=== PATIENT | male | born 1975 | race African-American/Black ===

== ENCOUNTER → 2017-04-03 | Day surgery (SDC) | payer OTHER ==
[~2017-04-03] MED LIST: TRIAMCINOLONE ACETONIDE 40 MG/ML SUS ONE
[2017-04-03 15:48] VITALS: BP 115/68; PULSE 61; RESP 14; TEMP 96.8; O2SAT 100
== END | disposition home or self-care (01) ==
LOC: SURG 11:49
PROVIDERS: ATTEND Nurse Anesthetist, Certified Registered
DX: M54.5 Low back pain (principal); M54.16 Radiculopathy, lumbar region
CPT/HCPCS: 62323; 77003; J3300

== ENCOUNTER 2017-04-16 14:36 | Observation (INO) | payer OTHER ==
[2017-04-16 15:04] LABS: BASOPHILS % (AUTO) 0 % (0-3); EOSINOPHILS % (AUTO) 0 % (0-9); HEMATOCRIT 40 % (39-53); MEAN CORPUSCULAR HGB CONC 33.6 gm/dl (32.0-36.0); MEAN CORPUSCULAR VOLUME 91 fL (80-100); MONOCYTES % (AUTO) 6.9 % (0-12); NEUTROPHILS % (AUTO) 71.5 % (37-80)
[2017-04-16] MEDS ORDERED: LORAZEPAM 2 MG/ML SOL IV ONE (15:07)
[2017-04-16] MEDS ORDERED: LORAZEPAM 2 MG/ML SOL ONE (15:08)
[2017-04-16] MEDS: SODIUM CHLORIDE 0.9% 500 ML 1,000 ML IV SCH ×3 (15:15→23:44)
[2017-04-16 15:26] LABS: CALCIUM 9.1 mg/dl (8.5-10.1); GLOM FILT RATE 104 mL/min (>60); MAGNESIUM 2.2 mg/dl (1.8-2.4); POTASSIUM 3.7 mMol/L (3.5-5.1); SODIUM 142 mMol/L (136-145)
[2017-04-16 16:44] LABS: APPEARANCE,URINE CLEAR; BILIRUBIN,URINE NEGATIVE (NEGATIVE); COLOR,URINE YELLOW; GLUCOSE, URINE (UA) NEGATIVE (NEGATIVE); KETONES,URINE NEGATIVE (NEGATIVE); NITRATE,URINE NEGATIVE (NEGATIVE); OCCULT BLOOD,URINE NEGATIVE (NEG-TRACE)
[2017-04-16 16:45] LABS: AMPHETAMINES NEGATIVE (NEGATIVE); LEUKOCYTE ESTERASE ,URINE NEGATIVE (NEGATIVE); METHADONE NEGATIVE (NEGATIVE); OPIATES(OP13) NEGATIVE (NEGATIVE); OXYCODONE(OXY) NEGATIVE (NEGATIVE); PROPOXYPHENE(PPX) NEGATIVE (NEGATIVE); RBC,URINE NEG (0-3AV/HPF); TRICYCLIC ANTIDEPRESSANTS NEGATIVE (NEGATIVE); UROBILINOGEN,URINE 0.2 (0.2-1.0 EU); WBC,URINE NEG (0-5AV/HPF)
[2017-04-16] MEDS ORDERED: Non-Formulary Medication MISC (Albuterol Sulfate [Albuterol *(Proair)(Ventolin)(Proventi IH PRN (21:43)
[2017-04-16] MEDS ORDERED: ONDANSETRON HCL 4 MG TAB PO PRN (21:43)
[2017-04-16] MEDS ORDERED: TRAMADOL HYDROCHLORIDE 50 MG TAB PO PRN (21:43)
[2017-04-16] MEDS: CARBAMAZEPINE 100 MG CTB PO SCH (22:30)
[2017-04-16] MEDS: RISPERIDONE 1 MG TAB PO SCH (22:56)
[2017-04-17] MEDS ORDERED: OMEPRAZOLE 20 MG CAPSULE PO SCH (07:00)
[2017-04-17 07:59] VITALS: BP 132/71; PULSE 57; RESP 16; TEMP 98.4; O2SAT 96
[2017-04-17] MEDS ORDERED: ESCITALOPRAM PO SCH (09:00)
[2017-04-17] MEDS ORDERED: DIVALPROEX 250 MG TCP PO SCH (09:00)
[2017-04-17] MEDS ORDERED: PREDNISOLONE ACETATE 1% LEFTEYE SCH (09:00)
[2017-04-17] MEDS ORDERED: Non-Formulary Medication MISC (Cetirizine 10 Mg 10 MG) PO SCH (09:00)
[2017-04-17] MEDS ORDERED: CETIRIZINE HYDROCHLORIDE 10 MG TAB PO SCH (09:00)
[2017-04-17] MEDS ORDERED: ESCITALOPRAM 10 MG TAB PO SCH (09:00)
[2017-04-17] MEDS ORDERED: CARBAMAZEPINE 300 MG PO SCH (09:00)
[2017-04-17] MEDS ORDERED: BECLOMETHASONE DIP IH SCH (09:00)
[2017-04-17] MEDS ORDERED: Non-Formulary Medication MISC (Fluticasone Propionate 2 SPR) NAS SCH (09:00)
[2017-04-17] MEDS ORDERED: Non-Formulary Medication MISC (Budesonide/Formoterol 160/4.5 2 PUFF) IH SCH (09:00)
[2017-04-17] MEDS ORDERED: DIVALPROEX SODIUM 1500 MG PO SCH (09:00)
[2017-04-17] MEDS ORDERED: ALBUTEROL HFA 60 PUFF/INHALER INH PRN (09:03)
[2017-04-17] MEDS ORDERED: OFLOXACIN 0.3% OPHTHAL 1 DROP SOL LEFTEYE PRN (09:09)
[2017-04-17] MEDS ORDERED: FLUTICASONE PROPIONATE SPR NAS SCH (09:30)
[2017-04-17] MEDS ORDERED: BUDESONIDE/FORMOTEROL 160/4.5 AER INH SCH (09:30)
[2017-04-17] MEDS ORDERED: PNEUMOCOCCAL VACCINE 0.5 ML SOL IM ONE (09:43)
[2017-04-17] MEDS: RISPERIDONE 1 MG TAB PO SCH (09:46)
[2017-04-17] MEDS: CARBAMAZEPINE 100 MG CTB PO SCH (09:48)
[2017-04-17] MEDS ORDERED: PREDNISOLONE ACETATE 1% OPHTH 1 DROP SUS LEFTEYE SCH (13:00)
[2017-04-18] MEDS ORDERED: PANTOPRAZOLE SODIUM 40 MG ECT PO SCH (07:00)
== END 2017-04-17 10:35 | disposition home or self-care (01) ==
LOC: ED 14:36 → ACUTE CARE 19:15
PROVIDERS: ADMIT Family Medicine; ATTEND Family Medicine
DX: R56.9 Unspecified convulsions (principal); R45.851 Suicidal ideations; F41.9 Anxiety disorder, unspecified; Z63.0 Problems in relationship with spouse or partner
CPT/HCPCS: 99285 ×3; 71010; 80048; 80156; 80164; 80305; 81001; 83735; 84100; 84443; 84484; 85025; 87040 ×2; 90732; 93005; J2060; 36415; 96365; 96374; 99291

== ENCOUNTER 2017-04-24 10:33 | Day surgery (SDC) | payer OTHER ==
[2017-04-24] MEDS ORDERED: BUPIVACAINE HCL 0.5% MPF 10 ML SOL ONE (10:41)
[2017-04-24] MEDS ORDERED: LIDOCAINE HCL 2% MPF SOL ONE (10:41)
[2017-04-24 10:46] VITALS: TEMP 97.8; O2SAT 100
[2017-04-24 11:18] VITALS: BP 115/74; PULSE 61; RESP 12
== END 2017-04-24 11:20 | disposition home or self-care (01) ==
LOC: SURG 10:33
PROVIDERS: ATTEND Nurse Anesthetist, Certified Registered
DX: M79.1 Myalgia (principal)

== ENCOUNTER 2017-06-13 03:57 | Emergency (ER) | payer OTHER ==
[2017-06-13 04:03] VITALS: BP 120/70; PULSE 89; RESP 16; TEMP 98; O2SAT 97
[2017-06-13] MEDS ORDERED: BACITRACIN 500 U/GM OIN TOP ONE ×2 (04:09→04:10)
== END 2017-06-13 04:25 | disposition home or self-care (01) ==
LOC: ED 03:57
DX: S50.811A Abrasion of right forearm, initial encounter (principal); S60.511A Abrasion of right hand, initial encounter; W55.03XA Scratched by cat, initial encounter
CPT/HCPCS: 99282; 99283

== ENCOUNTER 2017-06-24 11:24 | Emergency (ER) | payer OTHER ==
[2017-06-24 11:38] VITALS: BP 101/66; PULSE 61; RESP 20; TEMP 96.9; O2SAT 99
== END 2017-06-24 12:25 | disposition home or self-care (01) ==
LOC: ED 11:24
DX: G89.29 Other chronic pain (principal); M54.6 Pain in thoracic spine
CPT/HCPCS: 99282

== ENCOUNTER 2017-07-24 12:23 | Day surgery (SDC) | payer OTHER ==
[2017-07-24 12:45] VITALS: O2SAT 100
[2017-07-24] MEDS ORDERED: TRIAMCINOLONE ACETONIDE 40 MG/ML SUS ONE (13:18)
[2017-07-24 13:44] VITALS: BP 123/54; PULSE 52; RESP 20; TEMP 98.4
== END 2017-07-24 14:00 | disposition home or self-care (01) ==
LOC: SURG 12:23
PROVIDERS: ATTEND Nurse Anesthetist, Certified Registered
DX: M54.5 Low back pain (principal); M54.16 Radiculopathy, lumbar region
CPT/HCPCS: 62323; 77003; J3300

== ENCOUNTER 2017-07-29 12:26 | Emergency (ER) | payer OTHER ==
[2017-07-29] MEDS ORDERED: ALBUTEROL/IPRATROPIUM 1 VIAL SOL ONE (12:40)
[2017-07-29] MEDS ORDERED: ALBUTEROL/IPRATROPIUM 1 VIAL SOL INH ONE (12:45)
[2017-07-29 12:57] VITALS: TEMP 98.7
[2017-07-29 13:17] LABS: BASOPHILS % (AUTO) 0 % (0-3); EOSINOPHILS % (AUTO) 0 % (0-9); HEMATOCRIT 37 % (39-53); MEAN CORPUSCULAR HGB CONC 33.9 gm/dl (32.0-36.0); MEAN CORPUSCULAR VOLUME 93 fL (80-100); MONOCYTES % (AUTO) 5.5 % (0-12); NEUTROPHILS % (AUTO) 78.9 % (37-80)
[2017-07-29 14:10] VITALS: BP 134/62; PULSE 51; RESP 12; O2SAT 98
== END 2017-07-29 14:07 | disposition home or self-care (01) ==
LOC: ED 12:26
DX: J45.901 Unspecified asthma with (acute) exacerbation (principal)
CPT/HCPCS: 36415; 71020; 85025; 99283; J7620

== ENCOUNTER 2017-08-14 14:01 | Emergency (ER) | payer OTHER ==
[2017-08-14 14:18] VITALS: BP 117/75; PULSE 76; RESP 20; TEMP 98.5; O2SAT 100
== END 2017-08-14 15:00 | disposition home or self-care (01) ==
LOC: ED 14:01
DX: R46.89 Other symptoms and signs involving appearance and behavior (principal)
CPT/HCPCS: 99282

== ENCOUNTER 2017-08-14 16:52 | Emergency (ER) | payer OTHER ==
[2017-08-14] MEDS ORDERED: NITROGLYCERIN 0.4 MG TAB SL ONE (17:00)
[2017-08-14] MEDS ORDERED: SODIUM CHLORIDE 0.9% FLUSH 10 ML SOL IV PRN (17:00)
[2017-08-14] MEDS ORDERED: ASPIRIN 81 MG CHEWABLE CTB PO STA (17:00)
[2017-08-14] MEDS ORDERED: ASPIRIN 81 MG CHEWABLE CTB ONE (17:00)
[2017-08-14] MEDS ORDERED: NITROGLYCERIN 0.4 MG TAB SL PRN (17:00)
[2017-08-14] MEDS ORDERED: LORAZEPAM 2 MG/ML SOL ONE (17:03)
[2017-08-14] MEDS ORDERED: LORAZEPAM 2 MG/ML SOL IV ONE (17:05)
[2017-08-14 17:26] LABS: APPEARANCE,URINE Clear; BILIRUBIN,URINE NEGATIVE (NEGATIVE); COLOR,URINE Yellow; GLUCOSE, URINE (UA) NEGATIVE (NEGATIVE); KETONES,URINE NEGATIVE (NEGATIVE); LEUKOCYTE ESTERASE ,URINE NEGATIVE (NEGATIVE); NITRATE,URINE NEGATIVE (NEGATIVE); OCCULT BLOOD,URINE NEGATIVE (NEG-TRACE); UROBILINOGEN,URINE 0.2 (0.2-1.0 EU)
[2017-08-14 17:31] LABS: HEMATOCRIT 42 % (39-53); MEAN CORPUSCULAR VOLUME 93 fL (80-100)
[2017-08-14 17:34] LABS: CALCIUM 8.9 mg/dl (8.5-10.1); GLOM FILT RATE 92 mL/min (>60); POTASSIUM 3.9 mMol/L (3.5-5.1); SODIUM 142 mMol/L (136-145)
[2017-08-14 17:39] LABS: RBC,URINE NEG (0-3AV/HPF); WBC,URINE 0-1 (0-5AV/HPF)
[2017-08-14 17:45] LABS: BASOPHILS % (MANUAL) 0 % (0-3); EOSINOPHILS % (MANUAL) 0 % (0-9); LYMPHOCYTES % (MANUAL) 21 % (10-50); NORMAL RBCS PRESENT
[2017-08-14 17:57] VITALS: BP 122/66; PULSE 80; RESP 12; TEMP 98.9; O2SAT 97
== END 2017-08-14 18:30 | disposition home or self-care (01) ==
LOC: ED 16:52
DX: R06.02 Shortness of breath (principal); R46.89 Other symptoms and signs involving appearance and behavior
CPT/HCPCS: 99282 ×2; 99285 ×3; 81001; 82550; 84484; 85007; 85027; 85610; 85730; 93005; J2060; 36415; 71010; 80048

== ENCOUNTER 2017-08-20 21:13 | Emergency (ER) | payer OTHER ==
[2017-08-20] MEDS ORDERED: LIDOCAINE 1% W/EPI MPF 10 ML SOL ONE (21:27)
[2017-08-20 21:31] VITALS: PULSE 75; RESP 18; TEMP 98.1
[2017-08-20] MEDS ORDERED: LIDOCAINE 1% W/EPI MPF 10 ML SOL SC ONE (21:35)
[2017-08-20 21:38] VITALS: BP 116/53; O2SAT 98
[2017-08-20] MEDS ORDERED: BACITRACIN 500 U/GM OIN TOP ONE ×2 (21:48→21:50)
[2017-08-20] MEDS ORDERED: IBUPROFEN 400 MG TAB PO ONE (22:05)
[2017-08-20] MEDS ORDERED: IBUPROFEN 400 MG TAB ONE (22:06)
== END 2017-08-20 22:08 | disposition home or self-care (01) ==
LOC: ED 21:13
DX: S61.412A Laceration without foreign body of left hand, initial encounter (principal); W27.8XXA Contact with other nonpowered hand tool, initial encounter
CPT/HCPCS: 99284

== ENCOUNTER 2017-08-21 17:29 | Emergency (ER) | payer OTHER ==
[2017-08-21] MEDS ORDERED: DIAZEPAM 5MG/ML SOL IV ONE (17:42)
[2017-08-21 17:43] VITALS: TEMP 99.5
[2017-08-21] MEDS ORDERED: SODIUM CHLORIDE 0.9% FLUSH 10 ML SOL IV PRN (17:43)
[2017-08-21] MEDS ORDERED: DIAZEPAM 5MG/ML SOL ONE (17:46)
[2017-08-21 18:15] LABS: BASOPHILS % (AUTO) 1 % (0-3); EOSINOPHILS % (AUTO) 0 % (0-9); HEMATOCRIT 38 % (39-53); MEAN CORPUSCULAR HGB CONC 34.7 gm/dl (32.0-36.0); MEAN CORPUSCULAR VOLUME 91 fL (80-100); MONOCYTES % (AUTO) 7.9 % (0-12); NEUTROPHILS % (AUTO) 60.3 % (37-80)
[2017-08-21 18:37] LABS: ALBUMIN 3.6 gm/dl (3.4-5.0); CALCIUM 8.6 mg/dl (8.5-10.1)
[2017-08-21] MEDS ORDERED: POTASSIUM CHLORIDE 10 MEQ TER PO ONE (20:04)
[2017-08-21] MEDS ORDERED: POTASSIUM CHLORIDE 10 MEQ TER ONE (20:06)
[2017-08-21 22:09] VITALS: BP 127/72; PULSE 67; RESP 16; O2SAT 98
== END 2017-08-21 22:10 | disposition home or self-care (01) ==
LOC: ED 17:29
DX: R56.9 Unspecified convulsions (principal); S61.412D Laceration without foreign body of left hand, subsequent encounter
CPT/HCPCS: 99285 ×3; 72125; 80053; 80164; 85025; J3360; 36415; 70450

== ENCOUNTER 2017-09-05 13:20 | Day surgery (SDC) | payer OTHER ==
[2017-09-05 13:46] VITALS: BP 112/6; PULSE 63; RESP 16; TEMP 97.2; O2SAT 99
[2017-09-05] MEDS ORDERED: TRIAMCINOLONE ACETONIDE 40 MG/ML SUS ONE (13:50)
[2017-09-05] MEDS ORDERED: BUPIVACAINE HCL 0.5% MPF 10 ML SOL ONE (13:50)
== END 2017-09-05 14:15 | disposition home or self-care (01) ==
LOC: SURG 13:20
PROVIDERS: ATTEND Nurse Anesthetist, Certified Registered
DX: M79.1 Myalgia (principal)
CPT/HCPCS: 20552; J3300

== ENCOUNTER 2017-09-19 13:15 | Emergency (ER) | payer OTHER ==
[2017-09-19 13:21] VITALS: RESP 18
[2017-09-19 13:36] LABS: BASOPHILS % (AUTO) 1 % (0-3); EOSINOPHILS % (AUTO) 1 % (0-9); HEMATOCRIT 44 % (39-53); MEAN CORPUSCULAR HGB CONC 34.6 gm/dl (32.0-36.0); MEAN CORPUSCULAR VOLUME 91 fL (80-100); MONOCYTES % (AUTO) 6.2 % (0-12); NEUTROPHILS % (AUTO) 68.8 % (37-80)
[2017-09-19 14:00] LABS: ALBUMIN 3.9 gm/dl (3.4-5.0); ALT 21 IU/L (14-63); CALCIUM 9.1 mg/dl (8.5-10.1); GLOM FILT RATE 98 mL/min (>60); POTASSIUM 4.1 mMol/L (3.5-5.1); SODIUM 139 mMol/L (136-145); THYROID STIMULATING HORMONE 1.077 uIU/ml (0.358-3.740)
[2017-09-19 14:32] LABS: APPEARANCE,URINE Slightly Cloudy; BILIRUBIN,URINE NEGATIVE (NEGATIVE); COLOR,URINE Dark yellow; GLUCOSE, URINE (UA) NEGATIVE (NEGATIVE); KETONES,URINE NEGATIVE (NEGATIVE); LEUKOCYTE ESTERASE ,URINE NEGATIVE (NEGATIVE); NITRATE,URINE NEGATIVE (NEGATIVE); OCCULT BLOOD,URINE NEGATIVE (NEG-TRACE); PH,URINE 8.5
[2017-09-19 14:50] LABS: AMPHETAMINES NEGATIVE (NEGATIVE); METHADONE NEGATIVE (NEGATIVE); OPIATES(OP13) NEGATIVE (NEGATIVE); OXYCODONE(OXY) NEGATIVE (NEGATIVE); PROPOXYPHENE(PPX) NEGATIVE (NEGATIVE); RBC,URINE NEGATIVE (0-3AV/HPF); TRICYCLIC ANTIDEPRESSANTS NEGATIVE (NEGATIVE); WBC,URINE 0-1 (0-5AV/HPF)
[2017-09-19] MEDS ORDERED: KETOROLAC TROMETHAMINE 30 MG/ML SOL IM ONE (18:53)
[2017-09-19] MEDS ORDERED: KETOROLAC TROMETHAMINE 30 MG/ML SOL ONE (19:00)
[2017-09-19 20:14] VITALS: BP 154/78; PULSE 82; TEMP 98.7; O2SAT 98
[2017-09-19] MEDS ORDERED: HALOPERIDOL LACTATE 5 MG/ML SOL IM ONE ×2 (21:10→21:35)
[2017-09-19] MEDS ORDERED: HALOPERIDOL LACTATE 5 MG/ML SOL ONE ×2 (21:12→21:40)
[2017-09-19] MEDS ORDERED: LORAZEPAM 2 MG/ML SOL ONE (21:13)
[2017-09-19] MEDS ORDERED: LORAZEPAM 2 MG/ML SOL IM ONE (21:14)
[2017-09-19] MEDS ORDERED: DIPHENHYDRAMINE 50 MG/ML SOL IM ONE (21:35)
[2017-09-19] MEDS ORDERED: DIPHENHYDRAMINE 50 MG/ML SOL ONE (21:40)
== END 2017-09-19 22:12 | disposition short-term general hospital (02) ==
LOC: ED 13:15
DX: R45.851 Suicidal ideations (principal); J93.9 Pneumothorax, unspecified; R91.8 Other nonspecific abnormal finding of lung field
CPT/HCPCS: 36415; 71250; 80053; 80305; 80307; 81001; 84443; 85025; 96372; 99285; J1200; J1630; J1885; J2060

== ENCOUNTER 2017-09-29 03:43 | Emergency (ER) | payer OTHER ==
[2017-09-29] MEDS ORDERED: MORPHINE SULFATE 10 MG/ML SOL IV ONE (04:00)
[2017-09-29] MEDS ORDERED: SODIUM CHLORIDE 0.9% 1000ML 1,000 ML IV ONE (04:00)
[2017-09-29] MEDS ORDERED: SODIUM CHLORIDE 0.9% FLUSH 10 ML SOL IV PRN (04:00)
[2017-09-29] MEDS ORDERED: MORPHINE SULFATE 10 MG/ML SOL ONE (04:09)
[2017-09-29 04:30] LABS: BASOPHILS % (AUTO) 2 % (0-3); EOSINOPHILS % (AUTO) 6 % (0-9); HEMATOCRIT 34 % (39-53); MEAN CORPUSCULAR HGB CONC 35.5 gm/dl (32.0-36.0); MEAN CORPUSCULAR VOLUME 89 fL (80-100); MONOCYTES % (AUTO) 6.5 % (0-12); NEUTROPHILS % (AUTO) 50.9 % (37-80)
[2017-09-29 04:36] VITALS: BP 106/60; PULSE 71; RESP 16; TEMP 96.8; O2SAT 95
[2017-09-29 04:37] LABS: ALBUMIN 3.3 gm/dl (3.4-5.0); CALCIUM 8.1 mg/dl (8.5-10.1)
[2017-09-29 04:41] LABS: POTASSIUM 3.1 mMol/L (3.5-5.1)
[2017-09-29] MEDS ORDERED: KETOROLAC TROMETHAMINE 30 MG/ML SOL IV ONE (05:01)
[2017-09-29] MEDS ORDERED: POTASSIUM CHLORIDE 10 MEQ TER PO ONE (05:01)
[2017-09-29] MEDS ORDERED: POTASSIUM CHLORIDE 10 MEQ TER ONE (05:19)
[2017-09-29] MEDS ORDERED: KETOROLAC TROMETHAMINE 30 MG/ML SOL ONE (05:26)
== END 2017-09-29 05:48 | disposition home or self-care (01) ==
LOC: ED 03:43
DX: S20.221A Contusion of right back wall of thorax, initial encounter (principal); K59.00 Constipation, unspecified
CPT/HCPCS: 36415; 71101; 74000; 80053; 82150; 85025; 96365; 96374; 96375; 99284; J1885; J2270

== ENCOUNTER 2018-02-19 08:53 | Emergency (ER) | payer OTHER ==
[2018-02-19 09:15] VITALS: BP 122/68; PULSE 66; RESP 18; TEMP 97.4; O2SAT 99
[2018-02-19] MEDS ORDERED: CARBAMAZEPINE 100 MG CTB PO ONE (11:06)
[2018-02-19] MEDS ORDERED: CARBAMAZEPINE 100 MG CTB PO SCH (11:15)
== END 2018-02-19 11:45 | disposition home or self-care (01) ==
LOC: ED 08:53
DX: M54.2 Cervicalgia (principal)
CPT/HCPCS: 70450; 72070; 72120; 72125; 73030; 99282; A9270-GY

== ENCOUNTER 2018-04-30 18:23 | Emergency (ER) | payer OTHER ==
[2018-04-30] MEDS ORDERED: KETOROLAC TROMETHAMINE 30 MG/ML SOL IM ONE (18:47)
[2018-04-30] MEDS ORDERED: KETOROLAC TROMETHAMINE 30 MG/ML SOL ONE (18:51)
[2018-04-30 19:13] VITALS: BP 118/78; PULSE 70; RESP 18; TEMP 96.8; O2SAT 98
== END 2018-04-30 19:15 | disposition home or self-care (01) ==
LOC: ED 18:23
DX: S40.011A Contusion of right shoulder, initial encounter (principal); V18.4XXA Pedal cycle driver injured in noncollision transport accident in traffic accident, initial encounter; R40.2362 Coma scale, best motor response, obeys commands, at arrival to emergency department; R40.2142 Coma scale, eyes open, spontaneous, at arrival to emergency department; R40.2252 Coma scale, best verbal response, oriented, at arrival to emergency department; T14.8XXA Other injury of unspecified body region, initial encounter
CPT/HCPCS: 96372; 99282; J1885

== ENCOUNTER 2018-05-02 18:12 | Emergency (ER) | payer OTHER ==
[2018-05-02] MEDS ORDERED: LORAZEPAM 2 MG/ML SOL IV ONE ×2 (18:21→20:47)
[2018-05-02 19:05] LABS: ALBUMIN 3.7 gm/dl (3.4-5.0); BILIRUBIN,TOTAL 0.4 mg/dl (0.2-1.0); CALCIUM 8.8 mg/dl (8.5-10.1); CARBON DIOXIDE 20.6 mEq/L (21-32); CREATININE 1.35 mg/dl (0.80-1.30); POTASSIUM 3.1 mMol/L (3.5-5.1); TOTAL PROTEIN 7.5 gm/dl (6.4-8.2)
[2018-05-02 19:10] LABS: BASOPHILS % (AUTO) 1 % (0-3); EOSINOPHILS % (AUTO) 1 % (0-9); HEMATOCRIT 38 % (39-53); HEMOGLOBIN 13.1 gm/dl (13.5-17.7); MEAN CORPUSCULAR HEMOGLOBIN 31.4 pg (27.0-32.0); MEAN CORPUSCULAR HGB CONC 34.5 gm/dl (32.0-36.0); MEAN CORPUSCULAR VOLUME 91 fL (80-100); MONOCYTES % (AUTO) 8.3 % (0-12); NEUTROPHILS % (AUTO) 60.6 % (37-80)
[2018-05-02 19:14] VITALS: TEMP 98.2
[2018-05-02] MEDS ORDERED: LORAZEPAM 2 MG/ML SOL ONE (20:50)
[2018-05-02] MEDS ORDERED: SODIUM CHLORIDE 0.9% FLUSH 10 ML SOL IV PRN (20:58)
[2018-05-02] MEDS ORDERED: POTASSIUM CHLORIDE 10 MEQ TER PO ONE (21:00)
[2018-05-02] MEDS ORDERED: DIVALPROEX 250 MG TAB.ER.24H PO ONE (21:05)
[2018-05-02] MEDS ORDERED: DIVALPROEX 250 MG TCP PO ONE (21:08)
[2018-05-02] MEDS ORDERED: POTASSIUM CHLORIDE 10 MEQ TER ONE (21:11)
[2018-05-02 21:40] VITALS: BP 110/61; PULSE 60; RESP 16; O2SAT 100
== END 2018-05-02 21:35 | disposition home or self-care (01) ==
LOC: ED 18:12
DX: R56.9 Unspecified convulsions (principal); G25.3 Myoclonus; R40.2362 Coma scale, best motor response, obeys commands, at arrival to emergency department; R40.2142 Coma scale, eyes open, spontaneous, at arrival to emergency department; R40.2252 Coma scale, best verbal response, oriented, at arrival to emergency department
CPT/HCPCS: 80053; 85025; 96374; 99283; 99285; J2060; A9270-GY

== ENCOUNTER 2018-08-22 15:53 | Emergency (ER) | payer OTHER ==
[2018-08-22 16:23] VITALS: BP 127/77; PULSE 84; RESP 18; TEMP 97.6; O2SAT 99
== END 2018-08-22 16:36 | disposition home or self-care (01) ==
LOC: ED 15:53
DX: J06.9 Acute upper respiratory infection, unspecified (principal)
CPT/HCPCS: 99282; 99283

== ENCOUNTER 2019-05-07 08:55 | Day surgery (SDC) | payer MEDICARE, OTHER ==
[~2019-05-07 08:55] MED LIST changes: +LIDOCAINE HCL 1% MPF 30 SOL ONE; +PROPOFOL 500 MG/50 ML EMU IV ONE; -TRIAMCINOLONE ACETONIDE 40 MG/ML SUS ONE
[2019-05-07 11:01] VITALS: TEMP 97.4; O2SAT 100
[2019-05-07 11:12] VITALS: BP 100/59; PULSE 57; RESP 20
== END 2019-05-07 11:45 | disposition home or self-care (01) | DRG 951 ==
LOC: SURG 08:55
PROVIDERS: ATTEND Surgery
DX: Z12.11 Encounter for screening for malignant neoplasm of colon (principal)
CPT/HCPCS: J2001; J2704